=== PATIENT | female | born 1965 | race Caucasian/White ===

== ENCOUNTER 2019-02-07 07:07 | Day surgery (SDC) | payer MEDICAID ==
[~2019-02-07] VITALS: Ht 162.6 cm; Wt 88.8 kg
[~2019-02-07 07:07] MED LIST: LIDOCAINE 1%, 20ML ONE
[2019-02-07] MEDS ORDERED: LACTATED RINGERS 1,000 ML IV SCH (07:21)
[2019-02-07] MEDS ORDERED: ACETAMINOPHEN 500 MG TABLET PO ONE (07:30)
[2019-02-07] MEDS ORDERED: SCOPOLAMINE PATCH, 1.5MG PATCH.TD72 TD ONE (07:30)
[2019-02-07] MEDS ORDERED: GABAPENTIN 300 MG CAPSULE PO ONE (07:30)
[2019-02-07] MEDS ORDERED: PLEASE ENTER ALLERGIES MC SCH (07:30)
[2019-02-07 07:45] VITALS: BP 102/73
[2019-02-07] MEDS ORDERED: LEVO75TA5 PO (07:49)
[2019-02-07] MEDS ORDERED: MIDAZOLAM 1 MG/ML, 2ML ONE (08:00)
[2019-02-07] MEDS ORDERED: FENTANYL PF 100 MCG/2ML ONE (08:00)
[2019-02-07] MEDS ORDERED: KETOROLAC 30 MG/1 ML ONE (08:38)
[2019-02-07] MEDS ORDERED: LIDOCAINE 2%, 6 ML JEL.PF.APP MM ONE (09:13)
[2019-02-07] MEDS ORDERED: CEFAZOLIN 1,000 MG ONE (09:22)
[2019-02-07] MEDS ORDERED: PROPOFOL 10 MG/ML, 20ML ONE (09:22)
[2019-02-07] MEDS ORDERED: LIDOCAINE-MPF 2% ,5ML ONE (09:22)
[2019-02-07] MEDS ORDERED: ONDANSETRON 2MG/ML, 2ML ONE (09:22)
[2019-02-07] MEDS ORDERED: DEXAMETHASONE 4 MG/ML, 1ML ONE (09:22)
[2019-02-07] MEDS ORDERED: ROCURONIUM 10MG/ML,5ML ONE (09:22)
[2019-02-07] MEDS ORDERED: BUPIVACAINE/PF 0.25% ONE (09:22)
[2019-02-07] MEDS ORDERED: SUCCINYLCHOLINE 20 MG/ML, 10ML ONE (09:22)
[2019-02-07] MEDS ORDERED: MEPERIDINE/PF 25MG/ML,1ML ONE (10:05)
[2019-02-07] MEDS ORDERED: ALBUTEROL/IPRATROPIUM 2.5MG/0.5MG, 3 ML NPPB PRN (11:00)
[2019-02-07] MEDS ORDERED: ONDANSETRON 2MG/ML, 2ML IV PRN (11:00)
[2019-02-07] MEDS ORDERED: OXYcodone 5 MG/5 ML ORAL.SOL UDC PO PRN (11:00)
[2019-02-07] MEDS ORDERED: PROMETHAZINE 25 MG/ML, 1ML IV PRN (11:00)
[2019-02-07] MEDS ORDERED: hydrALAzine 20 MG/ML, 1ML IV PRN (11:00)
[2019-02-07] MEDS ORDERED: FENTANYL PF 100 MCG/2ML IV PRN (11:00)
[2019-02-07] MEDS ORDERED: MIDAZOLAM 1 MG/ML, 2ML IV PRN (11:00)
[2019-02-07] MEDS ORDERED: MEPERIDINE/PF 25MG/0.5ML IVPush PRN (11:00)
== END 2019-02-07 12:00 | disposition home or self-care (01) ==
LOC: OUT 07:07
PROVIDERS: ATTEND Orthopaedic Surgery
DX: S46.011A Strain of muscle(s) and tendon(s) of the rotator cuff of right shoulder, initial encounter (principal); S43.431A Superior glenoid labrum lesion of right shoulder, initial encounter; M75.51 Bursitis of right shoulder; M65.811 Other synovitis and tenosynovitis, right shoulder; M75.41 Impingement syndrome of right shoulder; E03.9 Hypothyroidism, unspecified; E66.9 Obesity, unspecified; Z68.30 Body mass index [BMI] 30.0-30.9, adult; Z79.891 Long term (current) use of opiate analgesic; Z79.899 Other long term (current) drug therapy; Z88.0 Allergy status to penicillin; Z87.891 Personal history of nicotine dependence; X50.0XXA Overexertion from strenuous movement or load, initial encounter; Y93.B9 Activity, other involving muscle strengthening exercises; Y92.89 Other specified places as the place of occurrence of the external cause; Y99.8 Other external cause status
CPT/HCPCS: 29823; 29826; 29827; 64415; C1713; J0330; J0690; J1100; J1885; J2175; J2250; J2405; J2704; J3010; J3490; J7120

== ENCOUNTER 2020-03-06 08:40 | Outpatient (CLI) | payer MEDICAID ==
[~2020-03-06 08:40] MED LIST changes: +LEVO75TA5 PO; -LIDOCAINE 1%, 20ML ONE; +MULT-658 PO
[2020-03-06] MEDS ORDERED: ROPivacaine/PF 0.2%, 10 ML ONE (08:54)
[2020-03-06] MEDS ORDERED: LIDOCAINE-MPF 1%, 5ML ONE (08:54)
[2020-03-06] MEDS ORDERED: OMNIPAQUE 300 MG/ML, 10ML VIAL ONE (09:00)
[2020-03-06] MEDS ORDERED: GADOTERATE 5 MMOL/10 ML VIAL ONE (09:00)
== END 2020-03-06 23:59 | disposition home or self-care (01) ==
LOC: RAD 08:40
PROVIDERS: ATTEND Orthopaedic Surgery Adult Reconstructive Orthopaedic Surgery
DX: M16.12 Unilateral primary osteoarthritis, left hip (principal); Z79.899 Other long term (current) drug therapy; Z87.891 Personal history of nicotine dependence; Z88.0 Allergy status to penicillin
CPT/HCPCS: 27093; 73525; 73722; A9575; J2795; Q9967